=== PATIENT | female | born 1945 | race African-American/Black ===

== ENCOUNTER 2020-09-30 10:05 | Emergency (ER) | payer OTHER ==
[2020-09-30 10:21] VITALS: TEMP 98.7; BMI 21.6
[2020-09-30] MEDS ORDERED: MAG HYDROX/AL HYDROX/SIMETH -MYLANTA- ORAL SUSPENSION PO ONE (10:54)
[2020-09-30] MEDS ORDERED: FAMOTIDINE 20 MG/50 ML IVPB 20 MG/50 ML MG IVPB ONE ×2 (10:54→12:13)
[2020-09-30] MEDS ORDERED: LACTATED RINGERS SOLUTION 1000 ML INFUS.BAG IV ONE (11:28)
[2020-09-30 12:23] LABS: BASO % 0.4 % (0-2.0); EOS % 2.3 % (0-4.5); HEMATOCRIT 30.8 % (32.4-45.2); HEMOGLOBIN 10.8 GM/dL (10.7-15.3); LYMPH % 25.2 % (8-40); MCH 30.2 pg (25.7-33.7); MCHC 35.2 g/dl (32.0-36.0); MEAN CELL VOLUME 85.9 fl (80-96); MEAN PLT VOLUME 7.3 fl (7.5-11.1); NEUT % 60.1 % (42.8-82.8); PLATELET COUNT 165 10^3/uL (134-434); RBC 3.58 M/mm3 (3.60-5.2); RDW 14.9 % (11.6-15.6); WHITE BLOOD COUNT 4.3 K/mm3 (4.0-10.0)
[2020-09-30] MEDS ORDERED: MAG HYDROX/AL HYDROX/SIMETH 30 ML UNIT-DOSE CUP ONE (12:28)
[2020-09-30 12:40] LABS: CHLORIDE 108 mmol/L (98-107); SODIUM 141 mmol/L (136-145)
[2020-09-30 12:42] LABS: CALCIUM 8.5 mg/dL (8.5-10.1)
[2020-09-30 12:43] LABS: ALBUMIN 3.1 g/dl (3.4-5.0); ANION GAP 5 MMOL/L (8-16); BLOOD UREA NITROGEN 13.6 mg/dL (7-18); CO2 28 mmol/L (21-32); GLUCOSE,RANDOM 80 mg/dL (74-106); LIPASE 88 U/L (73-393)
[2020-09-30 12:46] LABS: SGOT/AST 19 U/L (15-37); SGPT/ALT 18 U/L (13-61)
[2020-09-30 12:48] LABS: BILIRUBIN,TOTAL 0.5 mg/dL (0.2-1); TOT PROT 6.6 g/dl (6.4-8.2)
[2020-09-30 12:49] LABS: ALK PHOS 77 U/L (45-117)
[2020-09-30] MEDS ORDERED: ACETAMINOPHEN 1000 MG/100 ML VIAL (NON FORMULARY) IVPB ONE (12:54)
[2020-09-30] MEDS ORDERED: ACETAMINOPHEN INJECTION 100 ML IVPB ONE (13:07)
[2020-09-30 13:12] LABS: EPI CELLS 1 /uL (0-25.1); HYALINE CASTS 0 /uL (0-3.1); URINE APPEARANCE CLEAR; URINE BACTERIA 6 /uL (0-1359); URINE BILIRUBIN NEGATIVE (NEGATIVE); URINE COLOR YELLOW; URINE GLUCOSE (UA) NEGATIVE (NEGATIVE); URINE KETONE NEGATIVE (NEGATIVE); URINE LEUK ESTERASE NEGATIVE (NEGATIVE); URINE NITRITE NEGATIVE (NEGATIVE); URINE PROTEIN NEGATIVE (NEGATIVE); URINE RBC 20 /uL (0-23.9); URINE UROBILINOGEN 0.2 mg/dL (0.2-1.0); URINE WBC 0 /uL (0-25.8)
[2020-09-30] MEDS ORDERED: metroNIDAZOLE 250 MG TABLET PO ONE (17:37)
[2020-09-30] MEDS ORDERED: CIPROFLOXACIN 500 MG TABLET (RESTRICTED TO ID) PO ONE (17:37)
[2020-09-30 17:58] VITALS: BP 128/74; PULSE 74
== END 2020-09-30 18:09 | disposition home or self-care (01) ==
LOC: JER 10:05
PROC: 3E0333Z Introduction of Anti-inflammatory into Peripheral Vein, Percutaneous Approach (ICD-10-PCS; principal; 2020-09-30)
PROC: 3E033GC Introduction of Other Therapeutic Substance into Peripheral Vein, Percutaneous Approach (ICD-10-PCS; 2020-09-30)
DX: K57.92 Diverticulitis of intestine, part unspecified, without perforation or abscess without bleeding (principal)
CPT/HCPCS: 36415; 71045-TC-FY; 74177-TC; 80053; 81003; 82550; 83690; 83735; 84484; 85025; 87086; 93005; 93010; 99285-25; J0131; Q9967

== ENCOUNTER 2023-02-13 13:52 | Inpatient (IN) | payer OTHER ==
[2023-02-13] MEDS ORDERED: ACETAMINOPHEN 1000 MG/100 ML BAG IVPB ONE (14:26)
[2023-02-13] MEDS ORDERED: ACETAMINOPHEN INJECTION 100 ML IVPB ONE (14:41)
[2023-02-13 15:39] LABS: BASO % 0.2 % (0-2.0); HEMATOCRIT 35.7 % (32.4-45.2); HEMOGLOBIN 12.7 GM/dL (10.7-15.3); LYMPH % 9.8 % (8-40); MCH 29.5 pg (25.7-33.7); MCHC 35.7 g/dl (32.0-36.0); MEAN CELL VOLUME 82.7 fl (80-96); MONO % 14.9 % (3.8-10.2); NEUT % 75.1 % (42.8-82.8); PLATELET COUNT 154 10^3/uL (134-434); RBC 4.32 M/mm3 (3.60-5.2); RDW 15.4 % (11.6-15.6); WHITE BLOOD COUNT 5.7 K/mm3 (4.0-10.0)
[2023-02-13 15:46] LABS: INR 1.24 (0.83-1.09); PROTHROMBIN TIME (PATIENT) 14.4 SEC (9.7-13.0)
[2023-02-13 15:49] LABS: ACTIVATED PTT 30.3 SECONDS (25.2-36.5)
[2023-02-13 16:00] LABS: POTASSIUM 3.6 mmol/L (3.5-5.1)
[2023-02-13 16:02] LABS: CALCIUM 8.2 mg/dL (8.5-10.1)
[2023-02-13 16:03] LABS: ALBUMIN 3.1 g/dl (3.4-5.0); BLOOD UREA NITROGEN 13.6 mg/dL (7-18); MAGNESIUM 1.7 mg/dL (1.8-2.4)
[2023-02-13 16:06] LABS: CREATININE 0.9 mg/dL (0.55-1.3)
[2023-02-13 16:07] LABS: BILIRUBIN,TOTAL 0.7 mg/dL (0.2-1); TOT PROT 7.1 g/dl (6.4-8.2)
[2023-02-13] MEDS ORDERED: LACTATED RINGERS SOLUTION 1000 ML INFUS.BAG IV ONE (16:10)
[2023-02-13] MEDS ORDERED: MAGNESIUM SULF 50% (8.12 MEQ/2 ML-1 GM VIAL) IVPB ONE (16:10)
[2023-02-13] MEDS ORDERED: CEFTRIAXONE 1,000 MG in DEXTROSE 5%-WATER - 50 ML IVPB ONE (16:12)
[2023-02-13] MEDS ORDERED: AZITHROMYCIN IVPB 500 MG in DEXTROSE 5%-WATER - 250 ML IVPB ONE (16:12)
[2023-02-13] MEDS ORDERED: MAGNESIUM 1GM/D5W - 2 GM/200 ML IVPB IVPB ONE (16:15)
[2023-02-13] MEDS ORDERED: REMDESIVIR 200 MG in SODIUM CHLORIDE 250 ML IVPB ONE (16:46)
[2023-02-13 17:02] LABS: EPI CELLS 5 /uL (0-25.1); HYALINE CASTS 0 /uL (0-3.1); PH,URINE 5.5 (5.0-8.0); URINE APPEARANCE CLEAR; URINE BACTERIA 0 /uL (0-1359); URINE BILIRUBIN NEGATIVE (NEGATIVE); URINE COLOR YELLOW; URINE GLUCOSE (UA) NEGATIVE (NEGATIVE); URINE KETONE NEGATIVE (NEGATIVE); URINE LEUK ESTERASE NEGATIVE (NEGATIVE); URINE NITRITE NEGATIVE (NEGATIVE); URINE PROTEIN 1+ (NEGATIVE); URINE RBC 9 /uL (0-23.9); URINE WBC 8 /uL (0-25.8)
[2023-02-13] MEDS ORDERED: CEFTRIAXONE 1 GM/50 ML BAG ONE (17:16)
[2023-02-13] MEDS ORDERED: AZITHROMYCIN IVPB 500 MG/250 ML BAG IVPB ONE (17:17)
[2023-02-13] MEDS ORDERED: ALBUTEROL SO4 2.5/IPRATROPIUM 0.5 INH SOL 3 ML VIAL.NEB. NEB PRN (18:49)
[2023-02-13] MEDS ORDERED: ACETAMINOPHEN 325 MG TABLET (FP) PO PRN (18:58)
[2023-02-13] MEDS ORDERED: PANTOPRAZOLE 40 MG TABLET PO ONE (19:25)
[2023-02-13] MEDS: INSULIN SLIDING SCALE (NOVOLOG) 1 VIAL SQ SCH (19:34)
[2023-02-13] MEDS: PANTOPRAZOLE 40 MG TABLET PO SCH (19:35)
[2023-02-13] MEDS ORDERED: MELATONIN 5 MG TABLETS PO PRN (20:49)
[2023-02-14 06:21] LABS: BASO % 0.4 % (0-2.0); EOS % 0.1 % (0-4.5); HEMATOCRIT 34.9 % (32.4-45.2); HEMOGLOBIN 11.9 GM/dL (10.7-15.3); LYMPH % 18.5 % (8-40); MCH 28.8 pg (25.7-33.7); MCHC 34.2 g/dl (32.0-36.0); MEAN CELL VOLUME 84.1 fl (80-96); MEAN PLT VOLUME 7.8 fl (7.5-11.1); MONO % 17.9 % (3.8-10.2); NEUT % 63.1 % (42.8-82.8); PLATELET COUNT 142 10^3/uL (134-434); RBC 4.15 M/mm3 (3.60-5.2); RDW 14.7 % (11.6-15.6); WHITE BLOOD COUNT 5.1 K/mm3 (4.0-10.0)
[2023-02-14 06:38] LABS: POTASSIUM 3.5 mmol/L (3.5-5.1)
[2023-02-14 06:40] LABS: ALBUMIN 2.8 g/dl (3.4-5.0); CALCIUM 7.9 mg/dL (8.5-10.1)
[2023-02-14 06:41] LABS: BLOOD UREA NITROGEN 15.3 mg/dL (7-18)
[2023-02-14 06:44] LABS: CREATININE 0.9 mg/dL (0.55-1.3)
[2023-02-14 06:45] LABS: BILIRUBIN,TOTAL 0.5 mg/dL (0.2-1); TOT PROT 6.5 g/dl (6.4-8.2)
[2023-02-14] MEDS: INSULIN SLIDING SCALE (NOVOLOG) 1 VIAL SQ SCH ×3 (07:44→16:52)
[2023-02-14] MEDS ORDERED: ACETAMINOPHEN 325 MG TABLET (FP) ONE (08:27)
[2023-02-14] MEDS ORDERED: HEPARIN NA (PORCINE) 5,000 UNITS/ML 1ML VIAL ONE ×2 (09:06→13:42)
[2023-02-14] MEDS ORDERED: PANTOPRAZOLE 40 MG TABLET PO ONE (09:06)
[2023-02-14] MEDS: HEPARIN NA (PORCINE) 5,000 UNITS/ML 1ML VIAL SQ SCH ×3 (09:12→21:40)
[2023-02-14] MEDS: PANTOPRAZOLE 40 MG TABLET PO SCH (09:12)
[2023-02-14 19:02] VITALS: BMI 24.0
[2023-02-14] MEDS ORDERED: ACETAMINOPHEN 325 MG TABLET (FP) PO PRN (20:20)
[2023-02-14] MEDS ORDERED: MELATONIN 5 MG TABLETS PO PRN (20:20)
[2023-02-14] MEDS ORDERED: ALBUTEROL SO4 2.5/IPRATROPIUM 0.5 INH SOL 3 ML VIAL.NEB. NEB PRN (20:20)
[2023-02-15] MEDS: HEPARIN NA (PORCINE) 5,000 UNITS/ML 1ML VIAL SQ SCH ×2 (06:04→13:42)
[2023-02-15] MEDS: INSULIN SLIDING SCALE (NOVOLOG) 1 VIAL SQ SCH ×2 (06:12→16:34)
[2023-02-15 09:02] LABS: HEMATOCRIT 36.5 % (32.4-45.2); HEMOGLOBIN 12.1 GM/dL (10.7-15.3); MCH 28.2 pg (25.7-33.7); MCHC 33.2 g/dl (32.0-36.0); MEAN CELL VOLUME 84.8 fl (80-96); MEAN PLT VOLUME 8.7 fl (7.5-11.1); PLATELET COUNT 142 10^3/uL (134-434); RBC 4.31 M/mm3 (3.60-5.2); RDW 15.1 % (11.6-15.6)
[2023-02-15] MEDS ORDERED: PANTOPRAZOLE 40 MG TABLET PO SCH (10:00)
[2023-02-15 11:36] VITALS: PULSE 72; RESP 20
[2023-02-15 11:40] LABS: ANISOCYTOSIS 2+; MACROCYTOSIS 0; TARGET CELLS 2+
[2023-02-15 14:30] VITALS: BP 112/55; TEMP 98.9
[2023-02-15] MEDS ORDERED: ALBUTEROL SO4 HFA INHALER IH PRN ×2 (16:48→18:09)
== END 2023-02-15 18:44 | disposition home health service (06) | DRG 179 ==
LOC: JER 13:52 → JERBED 14:27 → UNDOADMIN 14:27 → JERBED 02-14 16:17 → J8W 02-14 18:23
PROVIDERS: ADMIT Internal Medicine; ATTEND Internal Medicine
DX: U07.1 COVID-19 (principal); F02.80 Dementia in other diseases classified elsewhere, unspecified severity, without behavioral disturbance, psychotic disturbance, mood disturbance, and anxiety; G30.9 Alzheimer's disease, unspecified; E11.9 Type 2 diabetes mellitus without complications; J44.9 Chronic obstructive pulmonary disease, unspecified; J45.909 Unspecified asthma, uncomplicated; I10 Essential (primary) hypertension; E78.5 Hyperlipidemia, unspecified; I44.7 Left bundle-branch block, unspecified; E83.42 Hypomagnesemia; G47.00 Insomnia, unspecified; E83.51 Hypocalcemia; E88.09 Other disorders of plasma-protein metabolism, not elsewhere classified
CPT/HCPCS: 0241U-QW; 36415; 70450-TC; 71045-TC-FY; 71250-TC; 72125-TC; 72170-TC-FY; 73562-TC-RT-FY; 80053; 81003; 82550; 82553; 82962; 83036; 83735; 84443; 84484; 85025; 85379; 85610; 85651; 85730; 86140; 87040; 87086; 93005; 93010; 97116-GP; 97161-GP; 99285-25; J0248; J1644